=== PATIENT | male | born 1990 | race Caucasian/White ===

== ENCOUNTER 2023-01-13 11:27 | Emergency (ER) | payer OTHER ==
[2023-01-13] MEDS ORDERED: Ibuprofen 400 MG Tab PO ONE (14:26)
[2023-01-13] MEDS ORDERED: Acetaminophen 325 MG Tab PO ONE (14:26)
[2023-01-13] MEDS ORDERED: Lidocaine 5% 700 MG Patch TRDERM ONE (14:26)
== END 2023-01-13 14:39 | disposition left against medical advice (07) ==
LOC: MW.ED 11:27
DX: M54.50 Low back pain, unspecified (principal)
CPT/HCPCS: 72100; 72100-26; 99283